=== PATIENT | male | born 1985 | race Two or more races ===

== ENCOUNTER 2019-06-02 18:20 | Emergency (ER) | payer BC ==
[~2019-06-02] VITALS: Ht 175.3 cm; Wt 104.3 kg
[2019-06-02 18:41] VITALS: BP 170/99
== END 2019-06-02 19:48 | disposition home or self-care (01) ==
LOC: ER 18:20
DX: S33.5XXA Sprain of ligaments of lumbar spine, initial encounter (principal); X58.XXXA Exposure to other specified factors, initial encounter; Y93.89 Activity, other specified; Y99.8 Other external cause status; Y92.89 Other specified places as the place of occurrence of the external cause
CPT/HCPCS: 81002; 81025